=== PATIENT | male | born 2000 | race Caucasian/White ===

== ENCOUNTER 2020-02-16 17:18 | Emergency (ER) | payer OTHER ==
[~2020-02-16] VITALS: Ht 188 cm; Wt 72.7 kg
[2020-02-16 17:24] VITALS: BP 131/76; TEMP 98.6
[2020-02-16 18:08] VITALS: PULSE 60
== END 2020-02-16 18:07 | disposition home or self-care (01) ==
LOC: COL.ER 17:18
DX: S61.211A Laceration without foreign body of left index finger without damage to nail, initial encounter (principal); W26.0XXA Contact with knife, initial encounter; Y92.090 Kitchen in other non-institutional residence as the place of occurrence of the external cause

== ENCOUNTER → 2020-03-01 | Outpatient (CLI) | payer OTHER ==
[2020-03-01 15:09] VITALS: BP 147/80; PULSE 66; TEMP 98.8
== END ==
LOC: COL.ER 15:04
DX: Z48.02 Encounter for removal of sutures (principal)

== ENCOUNTER → 2020-05-06 | Emergency (ER) | payer OTHER ==
[~2020-05-06] VITALS: Ht 188 cm; Wt 77.3 kg
[2020-05-06 17:09] VITALS: BP 122/80; PULSE 67; TEMP 98.3
== END ==
LOC: COL.ER 17:01
DX: R04.0 Epistaxis (principal)